=== PATIENT | female | born 1985 | race Native Hawaiian/Other Pacific Islander ===

== ENCOUNTER 2016-12-08 11:30 | Emergency (ER) | payer OTHER ==
[~2016-12-08] VITALS: Ht 172.7 cm; Wt 52.2 kg
[2016-12-08 12:09] VITALS: BP 150/98; TEMP 98
== END 2016-12-08 12:10 | disposition home or self-care (01) ==
LOC: ED 11:30
DX: S50.12XA Contusion of left forearm, initial encounter (principal); S50.11XA Contusion of right forearm, initial encounter; S00.432A Contusion of left ear, initial encounter; S09.91XA Unspecified injury of ear, initial encounter; Y04.2XXA Assault by strike against or bumped into by another person, initial encounter
CPT/HCPCS: 99282

== ENCOUNTER 2016-12-20 17:52 | Emergency (ER) | payer OTHER ==
[~2016-12-20] VITALS: Ht 172.7 cm; Wt 47.2 kg
[2016-12-20 18:00] VITALS: BP 141/96; TEMP 98.1
== END 2016-12-20 19:22 | disposition left against medical advice (07) ==
LOC: ED 17:52
DX: N89.8 Other specified noninflammatory disorders of vagina (principal); R10.2 Pelvic and perineal pain
CPT/HCPCS: 81000; 87088; 99283

== ENCOUNTER 2018-07-28 18:53 | Emergency (ER) | payer OTHER ==
[~2018-07-28] VITALS: Ht 170.2 cm; Wt 71.7 kg
[2018-07-28 19:36] LABS: PLATELET COUNT 206 K/uL (152-353)
[2018-07-28 19:46] LABS: POTASSIUM 3.4 mmol/L (3.6-5.2)
[2018-07-28 20:31] VITALS: BP 119/79; TEMP 97.9
== END 2018-07-28 20:38 | disposition home or self-care (01) ==
LOC: ED 18:53
PROVIDERS: Family Medicine
DX: J41.0 Simple chronic bronchitis (principal); M94.0 Chondrocostal junction syndrome [Tietze]
CPT/HCPCS: 36415; 80053; 80307; 81000; 85027; 87502; 93005; 99283

== ENCOUNTER 2021-12-13 10:07 | Outpatient (CLI) | payer BC | END 2021-12-13 18:53 | disposition home or self-care (01) | LOC: US 10:07 | PROVIDERS: ATTEND Nurse Practitioner Family | DX: E04.1 Nontoxic single thyroid nodule (principal) ==

== ENCOUNTER 2022-01-13 05:32 | Emergency (ER) | payer BC ==
[~2022-01-13] VITALS: Ht 170.2 cm; Wt 71.7 kg
[2022-01-13 05:40] VITALS: TEMP 98.8
[2022-01-13 06:29] LABS: PLATELET COUNT 261 K/uL (152-353)
[2022-01-13 06:39] LABS: POTASSIUM 3.4 mmol/L (3.6-5.2)
[2022-01-13 07:01] LABS: PARTIAL THROMBOPLASTIN TIME 24.5 SECONDS (24.5-33.6)
[2022-01-13 07:24] VITALS: BP 141/94
== END 2022-01-13 07:24 | disposition home or self-care (01) ==
LOC: ED 05:32
PROVIDERS: Hospitalist
PROC: 0HQ0XZZ Repair Scalp Skin, External Approach (ICD-10-PCS; principal; 2022-01-13)
DX: S01.81XA Laceration without foreign body of other part of head, initial encounter (principal); S09.8XXA Other specified injuries of head, initial encounter; S00.03XA Contusion of scalp, initial encounter; I10 Essential (primary) hypertension; Y00.XXXA Assault by blunt object, initial encounter; Y93.84 Activity, sleeping; Y92.098 Other place in other non-institutional residence as the place of occurrence of the external cause
CPT/HCPCS: 36415; 80048; 80320; 85027; 85610; 85730; 90471; 90715; 96374; 96375; 99283; 99284; J0690; J1885; J2270; J2405; J7040

== ENCOUNTER 2022-01-22 08:54 | Emergency (ER) | payer BC ==
[~2022-01-22] VITALS: Ht 170.2 cm; Wt 81.6 kg
[2022-01-22 09:00] VITALS: BP 169/95; TEMP 98
== END 2022-01-22 09:20 | disposition home or self-care (01) ==
LOC: ED 08:54
DX: Z48.02 Encounter for removal of sutures (principal)
CPT/HCPCS: 99282

== ENCOUNTER 2022-12-10 11:55 | Outpatient (CLI) | payer BC ==
[2022-12-10 12:21] LABS: PLATELET COUNT 264 K/uL (152-353)
[2022-12-10 12:35] LABS: POTASSIUM 4.7 mmol/L (3.6-5.2)
== END 2022-12-10 19:02 | disposition home or self-care (01) ==
LOC: RESP 11:55
PROVIDERS: ATTEND Nurse Practitioner Family
DX: R00.2 Palpitations (principal)
CPT/HCPCS: 36415; 80053; 82550; 82553; 84443; 84484; 85027; 93005

== ENCOUNTER 2023-04-18 08:34 | Observation (INO) | payer BC ==
[~2023-04-18] VITALS: Ht 170.2 cm; Wt 71.8 kg
[2023-04-18] VITALS (12 sets, daily range): BP systolic 116–200; BP diastolic 66–118; TEMP 98.1–98.5; Ht 170.2 cm; Wt 71.8 kg
[2023-04-18 08:55] LABS: PLATELET COUNT 298 K/uL (152-353)
[2023-04-18 09:11] LABS: POTASSIUM 3.8 mmol/L (3.6-5.2)
[2023-04-18] MEDS ORDERED: BUPR8SUB2 PO (13:00)
[2023-04-18] MEDS ORDERED: IBU800 MG PO (13:01)
[2023-04-18] MEDS ORDERED: GOODY1 PO (13:02)
[2023-04-18] MEDS ORDERED: MELATONIN GUMMY PO (13:03)
[2023-04-19] VITALS: BP 106/52; TEMP 98.2
[2023-04-19 00:34] VITALS: BP 145/91; TEMP 98.1
[2023-04-19 03:01] LABS: PLATELET COUNT 239 K/uL (152-353)
[2023-04-19 03:34] LABS: POTASSIUM 4.1 mmol/L (3.6-5.2)
[2023-04-19 04:00] VITALS: BP 121/95; TEMP 97.7
[2023-04-19 04:34] VITALS: BP 121/95; TEMP 97.7
[2023-04-19 07:52] VITALS: BP 136/93; TEMP 98
== END 2023-04-19 10:43 | disposition home or self-care (01) ==
LOC: ED 08:34 → MED/SURG 09:48
PROVIDERS: Family Medicine; ADMIT Nurse Practitioner Family; ATTEND Internal Medicine Endocrinology, Diabetes & Metabolism
DX: R07.89 Other chest pain (principal); Z72.0 Tobacco use; E88.01 Alpha-1-antitrypsin deficiency; I10 Essential (primary) hypertension
CPT/HCPCS: 36415; 80048; 80053; 80061; 81002; 84484; 85027; 93005; 99221; 99284; G0378; J1650

== ENCOUNTER 2023-05-20 08:39 | Outpatient (CLI) | payer BC ==
[~2023-05-20 08:39] MED LIST: BUPR8SUB2 PO; GOODY1 PO; IBU800 MG PO; MELATONIN GUMMY PO
== END 2023-05-20 19:13 | disposition home or self-care (01) ==
LOC: NM 08:39
PROVIDERS: ATTEND Family Medicine
DX: R07.89 Other chest pain (principal)
CPT/HCPCS: A9500